=== PATIENT | female | born 1965 | race Caucasian/White ===

== ENCOUNTER 2017-08-18 06:17 | Day surgery (SDC) | payer OTHER ==
[~2017-08-18] VITALS: Ht 167.6 cm; Wt 122.9 kg
--- NOTE | ~2017-08-18 | O ---
[facility] [place] [address] OPERATIVE REPORT Name: CHLOE CRAMER Room #: [place] [facility] [place]inio#: [id number] Admission: 08/18/17 Attend Phys: Dixon Carreon MD Discharge: 08/18/17 Date of : 69 Report #: [id number] THIS REPORT FOR: //name// CC: John Carreon PREOPERATIVE DIAGNOSIS: Right breast mass, post mastitis, likely duct disease. POSTOPERATIVE DIAGNOSIS: Right breast mass, post mastitis, likely duct disease. PROCEDURE PERFORMED: Excision of right breast mass/milk duct. SURGEON: Dixon Carreon M.D. ANESTHESIA: IV sedation and local 0.25% Marcaine. COMPLICATIONS: None. ESTIMATED BLOOD LOSS: 5 mL. DESCRIPTION OF PROCEDURE: With the patient under IV sedation, the right breast was prepped and draped in a sterile fashion. Timeout was performed. Preoperative IV antibiotic was administered. The nodule was palpable at 9 o'clock adjacent to the areola. There was also a cord palpable between the nipple and the nodule. The skin was anesthetized with 0.25% Marcaine. A curvilinear incision was made about an inch in length. After incising through the skin, the palpable nodule was identified. This was dissected free from the surrounding tissue, grasped with Allis and then dissected towards the areola. A dilated duct was identified. This was taken close to the nipple. This was then followed distally. There seemed to be another duct superiorly. This was also removed. This was followed distally and the duct was felt to be completely removed. Irrigation was performed. Hemostasis obtained with cautery. The subcutaneous tissue was then closed with 4-0 PDS. Skin was closed with 5-0 PDS. Dermabond, fluffy, 4 x 4 was applied. The patient was awakened and taken to the recovery room. The patient tolerated the procedure well. By: [id number] iDxon Carreon MD /nt
--- NOTE | ~2017-08-18 | S ---
[facility] [place] [address] SURGICAL PATH RPT PROCEDURE Name: CHLOE DODSON Room #: DEP [facility] Barbara.Marion.#: [id number] Admission: 08/18/17 Date of : 69 Discharge: 08/18/17 Report #: [id number] Path Case #: [id number] PATHOLOGY REPORT COLLECTION DATE: 08/18/2017 RECEIVED DATE: 08/19/2017 SUBMITTING PHYS: Dr. Dixon Carreon OTHER PHYS: Dr. John Lares SPECIMEN(S) RECEIVED: A.Right breast mass * * * * * * * * * * * * FINAL DIAGNOSIS: Breast, right, excision: - Benign breast tissue with reparative change and fibrocystic changes. - Negative for malignancy. COMMENT: This case is co-reviewed by Dr. Faye Orozco PATHOLOGIST: Nithin Bella M.D. REPORT ELECTRONICALLY SIGNED BY: Nithin Bella M.D. DATE/TIME: 08/22/2017 13:17 * * * * * * * * * * * * GROSS PATHOLOGY: The specimen is received in formalin labeled "Chloe Dodson, right breast, suture pointing at affected duct, history of mastitis". Received is a 10 g segment of pink-corey, fibrous to yellow-corey, lobulated tissue measuring 7.1 x 3.1 x 1.2 cm in greatest dimensions. There is a suture present at one aspect designating this as the affected duct. The area surrounding the suture is inked red and the remainder of the specimen is inked black. Sectioning reveals white-corey, fibrous to yellow-corey, lobulated cut surfaces, with the fibrous tissue encompassing probably 90% of the specimen. Multiple comedo-type structures are present. The specimen is submitted representatively as follows: A1-A5 entire area surrounding suture (red ink) A6-A8 additional registered representative sections of specimen. The specimen is collected at 1:06 PM; the time in formalin is not provided. The time out of formalin is 9:50 PM on 08/19/2017. ([facility]; 08/19/2017) CLINICAL HISTORY: [address] [place] [address] SURGICAL PATH RPT PROCEDURE Name: CHLOE DODSON [place] Room #: DEP [facility] M.R.#: [id number] Admission: 08/18/17 Date of : 69 Discharge: 08/18/17 Report #: [id number] Path Case #: [id number] Right breast mass, history of mastitis INITIAL CPT CODE(S): A; 75396 Professional services performed by [facility] at [place] [address], [place] [address] Technical services performed by [facility] at [address] [place] [address], [facility] [address] [address]. [facility] [address] [place] [address] PHONE: [phone] DIRECTOR: Rob Denton M.D. * * * END OF REPORT * * *
[~2017-08-18 06:17] MED LIST: ABILIFY30 MG PO; BUSPIRONE HCL10 MG PO; CLONAZEPAM 1 MG1 M1 PO; CLOZAPINE100 MG PO; CRESTOR10 MG PO; EFFEXOR XR75 MG PO; RESTORIL15 MG PO; SYNTHROID125 MCG PO; TOPAMAX200 MG PO; VENLAFAXINE HCL75 MG PO
[2017-08-18 11:00] LABS: CALCIUM 8.7 mg/dL (8.5-10.1); CREATININE 1.2 mg/dL (0.6-1.0); POTASSIUM 3.9 mmol/L (3.5-5.1)
[2017-08-18 11:06] LABS: ALBUMIN 3.5 g/dL (3.4-5.0); TOTAL BILIRUBIN 0.2 mg/dL (<0.1-1.0)
[2017-08-18] MEDS ORDERED: NORCO 5-325 TA1 EACH PO (13:24)
[2017-08-18 13:56] VITALS: BP 109/50
== END 2017-08-18 14:30 | disposition home or self-care (01) ==
LOC: OR 06:17 → TBA 06:17 → OR 09:21
PROVIDERS: Surgery
DX: D24.1 Benign neoplasm of right breast (principal); F32.9 Major depressive disorder, single episode, unspecified; F41.9 Anxiety disorder, unspecified; F20.0 Paranoid schizophrenia; E78.00 Pure hypercholesterolemia, unspecified; E03.9 Hypothyroidism, unspecified; Z79.899 Other long term (current) drug therapy; Z98.890 Other specified postprocedural states
CPT/HCPCS: 50010; 50101; 50386; 50417; 54118; 56525; 56526; 62110; 62850; 70005